=== PATIENT | female | born 1980 | race Caucasian/White ===

== ENCOUNTER 2018-07-13 02:20 | Emergency (ER) | payer MEDICAID, OTHER ==
[~2018-07-13] VITALS: Ht 162.6 cm; Wt 64.3 kg
[2018-07-13 02:27] VITALS: BP 115/78
[2018-07-13] MEDS ORDERED: IBUP-1984 PO (04:13)
== END 2018-07-13 04:38 | disposition home or self-care (01) ==
LOC: ER 02:21
DX: M79.632 Pain in left forearm (principal); Z79.899 Other long term (current) drug therapy
CPT/HCPCS: 29125; 99283

== ENCOUNTER 2024-12-05 02:29 | Emergency (ER) | payer MEDICAID, OTHER ==
[~2024-12-05] VITALS: Ht 162.6 cm; Wt 59.4 kg
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
[2024-12-05] MEDS ORDERED: iohexol 300mg/ml 100ml inj. ONE (02:41)
[2024-12-05 02:42] VITALS: TEMP 98.8
[2024-12-05 03:01] LABS: MEAN PLATELET VOLUME 7.7 FL (7.4-10.4); RED CELL DISTRIBUTION WIDTH 14.7 % (11.5-14.5)
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
[2024-12-05] MEDS: normal saline 1000ML IV soln IVB ONE (03:14)
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
[2024-12-05 03:17] LABS: CREATININE 0.73 MG/DL (0.40-0.90); TOTAL CARBON DIOXIDE 29.7 MMOL/L (24-32); eCRCL 85 ML/MIN; eGFR 87 ML/MIN
[2024-12-05 03:18] LABS: ETHANOL < 10 MG/DL (<10)
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
[2024-12-05] MEDS: fentaNYL/PF 50MCG/1 ML 2ML syringe IV ONE ×3 (03:37→06:28)
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
[2024-12-05] MEDS: LIDOcaine 1% W/epiNEPHrine 1:100,000 20ml vial IJ ONE (04:40)
[2024-12-05] MEDS: TETanus/Pertussis (Acell)/Diphther VAC/PF (Tdap-Adult) 0.5ml syringe IMVAC ONE (04:59)
[2024-12-05] MEDS: ceFAZolin/D5W- 1GM premix 50 ML IV ONE ×2 (05:48→05:49)
[2024-12-05 05:52] VITALS: BP 114/78; PULSE 78; O2SAT 98
[2024-12-05 06:28] VITALS: RESP 16
--- NOTE | 2024-12-05 07:04 | ELECTROCARDIOGRAPH REPORT ---
[facility] Test Date: 2024-12-05 Test Time: 02:38:26 Pat Name: VLADIMIR ALBERTO Department: EMERGENCY ROOM Patient ID: [facility]-[id number] Room: Gender: F [employer]: PM : 1980 Requested By: LADARIUS ASH Order Number: [id number] Reading MD: Dr. Omar Lanier Measurements Intervals [place] Rate: 75 P: 65 TN: 151 QRS: 81 QRSD: 100 T: 73 QT: 393 QTc: 439 Interpretive Statements Sinus rhythm Electronically Signed On 12-15-2024 22:20:[address] Omar Lanier Please click the below link to view image of tracing.
== END 2024-12-05 06:30 | disposition short-term general hospital (02) ==
LOC: ER 02:30
DX: S02.2XXA Fracture of nasal bones, initial encounter for closed fracture (principal); S01.81XA Laceration without foreign body of other part of head, initial encounter; I49.8 Other specified cardiac arrhythmias; Z72.89 Other problems related to lifestyle; V89.2XXA Person injured in unspecified motor-vehicle accident, traffic, initial encounter; V09.9XXA Pedestrian injured in unspecified transport accident, initial encounter; Y93.89 Activity, other specified; Y92.410 Unspecified street and highway as the place of occurrence of the external cause; Y99.8 Other external cause status
CPT/HCPCS: 12011; 36415; 70450; 70486; 71260; 72125; 74177; 80053; 80320; 85025; 90471; 90715; 93005; 96361; 96365; 96375; 96376; 99285; J0690; J3010; J7030; Q9967; A6449